=== PATIENT | female | born 1980 | race Native Hawaiian/Other Pacific Islander ===

== ENCOUNTER 2017-08-28 09:21 | Inpatient (IN) ==
[2017-08-28] MEDS ORDERED: [UNRECOGNIZED DRUG - REMARK] OTHER SCH (10:45)
[2017-08-28] MEDS ORDERED: Oxytocin 30 Units/500ml Premix 30 UNITS/500 ML BAG IV.SIG ONE (10:59)
[2017-08-28] MEDS ORDERED: fentaNYL Citrate Inj 100 MCG/2 ML Ampul IV.PUSH PRN ×2 (10:59)
[2017-08-28] MEDS ORDERED: Sod Chloride 0.9% Inj 1,000 ML IV.CONT PRN (10:59)
[2017-08-28] MEDS ORDERED: Oxytocin 30 Units/500ml Premix 30 UNITS/500 ML BAG IV.SIG PRN (10:59)
[2017-08-28] MEDS ORDERED: Sodium Chlor 0.9% Inj 500 ML IV.SIG PRN (10:59)
[2017-08-28] MEDS ORDERED: Naloxone Inj 0.4 MG/ML Vial IV.PUSH PRN ×2 (10:59→19:56)
[2017-08-28] MEDS ORDERED: Citric Acid/Sodium Citrate Liq 30 ML UDC PO SCH (11:00)
--- NOTE | 2017-08-28 11:08 | P.HPOB ---
History of Present Illness Primary Care Physician: Delroy Alexis MD OB [facility] Full H & P dictated - Inpatient Certification If this patient has been admitted as an Inpatient: I certify that the inpatient services were ordered in accordance with Medicare regulations governing the order. This includes certification that hospital inpatient services are reasonable and necessary and in the case of services not specified as inpatient-only under 42 CFR 419.22(n), that they are appropriately provided as inpatient services in accordance to with the 2-midnight benchmark under 43 CFR 412.3(e) Estimated Total Length of Stay (Days): 3 Plans for Post Hospital Care: Home Medications and Allergies Allergies Allergy/AdvReac Type Severity Reaction Status Date / Time No Known Allergies Allergy Uncoded 05/25/13 02:55 Exam Vital signs: Vital Signs 08/28/17 10:39 Pulse Rate 90 Blood Pressure 117/72 Caprini VTE Risk Assessment Caprini VTE Risk Assessment: No/Low Risk (score <= 1) Caprini Risk Assessment Model: Point Value = 1 Point Value = 2 Point Value = 3 Point Value = 5 Age 41-60 Minor surgery BMI > 25 kg/m2 Swollen legs Varicose veins or History of unexplained or recurrent spontaneous Oral contraceptives or hormone replacement Sepsis (< 1 month) Serious lung disease, including pneumonia (< 1 month) Abnormal pulmonary function Acute myocardial infarction Congestive heart failure (< 1 month) History of inflammatory bowel disease Medical patient at bed rest Age 61-74 Arthroscopic surgery Major open surgery (> 45 min) Laparoscopic surgery (> 45 min) Malignancy Confined to bed (> 72 hours) Immobilizing plaster cast Central venous access Age >= 75 History of VTE Family history of VTE Factor V Leiden Prothrombin [id number] Lupus anticoagulant Anticardiolipin antibodies Elevated serum homocysteine Heparin-induced thrombocytopenia Other congenital or acquired thrombophilia Stroke (< 1 month) Elective arthroplasty Hip, pelvis, or leg fracture Acute spinal cord injury (< 1 month) Prophylaxis Regimen: Total Risk Factor Score Risk Level Prophylaxis Regimen 0-1 Low Early ambulation 2 Moderate Order ONE of the following: *Sequential Compression Device (SCD) *Heparin 5000 units SQ BID 3-4 Higher Order ONE of the following medications: *Heparin 5000 units SQ TID *Enoxaparin/Lovenox 40 mg SQ daily (WT < 150 kg, CrCl > 30 mL/min) *Enoxaparin/Lovenox 30 mg SQ daily (WT < 150 kg, CrCl > 10-29 mL/min) *Enoxaparin/Lovenox 30 mg SQ BID (WT < 150 kg, CrCl > 30 mL/min) AND/OR *Sequential Compression Device (SCD) 5 or more Highest Order ONE of the following medications: *Heparin 5000 units SQ TID (Preferred with Epidurals) *Enoxaparin/Lovenox 40 mg SQ daily (WT < 150 kg, CrCl > 30 mL/min) *Enoxaparin/Lovenox 30 mg SQ daily (WT < 150 kg, CrCl > 10-29 mL/min) *Enoxaparin/Lovenox 30 mg SQ BID (WT < 150 kg, CrCl > 30 mL/min) AND *Sequential Compression Device (SCD)
[2017-08-28 11:22] LABS: Baso # (Auto) 0.1 th/mm3 (0.0-0.2); Baso % (Auto) 0.6 % (0.0-2.0); Eos # (Auto) 0.1 th/mm3 (0.0-0.4); Eos % (Auto) 0.7 % (0.0-4.0); Hematocrit 30.6 % (35.0-46.0); Hemoglobin 9.9 gm/dL (11.6-15.3); Lymph # (Auto) 2.4 th/mm3 (1.0-4.8); Lymph % (Auto) 24.6 % (9.0-44.0); Mean Corpuscular HGB Conc 32.2 % (32.0-36.0); Mean Corpuscular Hemoglobin 25.1 pg (27.0-34.0); Mean Corpuscular Volume 78.1 fL (80.0-100.0); Mean Platelet Volume 9.8 fL (7.0-11.0); Mono % (Auto) 10.2 % (0.0-8.0); Neut # (Auto) 6.2 th/mm3 (1.8-7.7); Neut % (Auto) 63.9 % (16.0-70.0); Platelet Count 253 th/mm3 (150-450); Red Blood Count 3.92 mil/mm3 (4.00-5.30); Red Cell Distribution Width 16.1 % (11.6-17.2); White Blood Count 9.7 th/mm3 (4.0-11.0)
[2017-08-28] MEDS ORDERED: Pantoprazole Inj 40 MG Vial IV.PUSH ONE (12:15)
--- NOTE | 2017-08-28 12:52 | P.OBLABOR ---
Subjective Interval history: Resting comfortably with pit just initiated. Has eaten lunch. No leaking or bleeding. GFM Objective Vital Signs: Vital Signs - 8 hr 08/28/17 10:39 08/28/17 11:09 08/28/17 12:31 Temperature 98.4 F Pulse Rate 90 85 Blood Pressure 117/72 117/71 Objective: 3 cm/80%/-2 deviated to her left arom clear fluid EFW 7 pounds pelvis proven Weeks Gestation: 38 Patient Started Active Labor: No Medical Induction of Labor: Yes (for mildly elevated BP and fluid 5 cm) Medical Induction Start Date: 08/28/17 Medical Induction Start Time: 12:51 Artificial Rupture of Membrane: Yes (clear and minimal) Artificial ROM Date: 08/28/17 Artificial ROM Time: 12:51
[2017-08-28 14:37] LABS: Amphetamine Urine With Conf Neg (Neg); Benzodiazepine Urine With Conf Neg (Neg)
[2017-08-28] MEDS ORDERED: fentaNYL 2MCG-Bupiv 0.125% Epi 150 ML EPIDURAL ONE (14:49)
[2017-08-28] MEDS ORDERED: Measles/Mumps/Rubella Vaccine Inj 0.5 ML Vial SQ ONE (16:00)
[2017-08-28] MEDS ORDERED: Diphtheria/Tetanus/Pertussis Vaccine Inj 0.5 ML Syringe IM ONE (16:00)
--- NOTE | 2017-08-28 17:51 | P.OBLABOR ---
Subjective Interval history: Comfortable with epidural no nausea or vomiting or headache Objective Vital Signs: Vital Signs - 8 hr 08/28/17 10:39 08/28/17 10:45 08/28/17 11:09 Temperature 98.4 F Pulse Rate 90 Respiratory Rate 18 Blood Pressure 117/72 08/28/17 12:31 08/28/17 13:01 08/28/17 14:00 Temperature Pulse Rate 85 83 82 Respiratory Rate Blood Pressure 117/71 120/73 104/66 08/28/17 14:30 08/28/17 15:11 08/28/17 15:35 Temperature Pulse Rate 81 92 H 96 H Respiratory Rate Blood Pressure 115/67 120/82 118/75 08/28/17 15:36 08/28/17 15:45 08/28/17 16:00 Temperature 97.7 F Pulse Rate 89 85 Respiratory Rate 18 Blood Pressure 122/70 118/75 08/28/17 16:15 08/28/17 17:01 08/28/17 17:31 Temperature Pulse Rate 75 82 81 Respiratory Rate Blood Pressure 127/81 136/90 128/90 Objective: 5-6/90/-1 mild variables with excellent BTBV category 1 contractions every 2-3 minutes Assessment and Plan - Plan anticipate
[2017-08-28] MEDS ORDERED: Acetaminophen 325 MG Tablet PO ONE (18:00)
[2017-08-28] MEDS ORDERED: Lidocaaine 1.5%/Epinephrine 1:200,000 PF Inj 5 ML Amp ONE (18:25)
[2017-08-28] MEDS ORDERED: Benzocaine 20% Top Spray 60 ML Can TOPICAL PRN (19:56)
[2017-08-28] MEDS ORDERED: Bisacodyl 10 MG Supp RECTAL PRN (19:56)
[2017-08-28] MEDS ORDERED: Acetaminophen 325 MG Tablet PO PRN (19:56)
[2017-08-28] MEDS ORDERED: Witch Hazel 50%/Glyderin 12.5% 40 Pad Jar RECTAL PRN (19:56)
--- NOTE | 2017-08-28 19:56 | P.OBDELI ---
Weeks Gestation: 38 Anesthesia: Epidural Episiotomy: none Vaginal Delivery: Normal Presentation: Occiput posterior Nuchal Cord: None Delayed Cord Clamping (45 sec): Yes Laceration: Perineal, 1 deg Repair: Chromic running Estimated blood loss (mL): 600 Infant: Female, Single Additional Information: LOP over intact perineum. During second stage fluid was port wine suggestive of partial abruptio. No nuchal cord. True knot in the cord. Placenta intact with area of clinical abruptio. EBL 600 but not bleeding now. Apgars 9 at one and 9 at five Cord collection kit completed to specifications.
[2017-08-28] MEDS ORDERED: Oxytocin 30 Units/500ml Premix 30 UNITS/500 ML BAG IV.CONT SCH (20:00)
[2017-08-28] MEDS: Ibuprofen 400 MG Tablet PO PRN (20:40)
[2017-08-28] MEDS ORDERED: Senna/Docusate Sodium 8.6/50 MG Tablet PO SCH (21:00)
[2017-08-28] MEDS ORDERED: Zolpidem Tartrate 5 MG Tablet PO PRN (21:00)
[2017-08-29] MEDS: Ibuprofen 400 MG Tablet PO PRN ×2 (05:48→14:48)
--- NOTE | 2017-08-29 08:01 | P.PNOB ---
Subjective Interval history: Quiet morning Baby in nursery mom plans to breast and bottle feed Objective Vital Signs/I&O: Vital Signs 08/28/17 10:39 08/28/17 10:45 08/28/17 11:09 Temperature 98.4 F Pulse Rate 90 Respiratory Rate 18 Blood Pressure 117/72 08/28/17 12:31 08/28/17 13:01 08/28/17 14:00 Temperature Pulse Rate 85 83 82 Respiratory Rate Blood Pressure 117/71 120/73 104/66 08/28/17 14:30 08/28/17 15:11 08/28/17 15:35 Temperature Pulse Rate 81 92 H 96 H Respiratory Rate Blood Pressure 115/67 120/82 118/75 08/28/17 15:36 08/28/17 15:45 08/28/17 16:00 Temperature 97.7 F Pulse Rate 89 85 Respiratory Rate 18 Blood Pressure 122/70 118/75 08/28/17 16:15 08/28/17 17:01 08/28/17 17:31 Temperature Pulse Rate 75 82 81 Respiratory Rate Blood Pressure 127/81 136/90 128/90 08/28/17 18:01 08/28/17 18:35 08/28/17 19:05 Temperature Pulse Rate 84 85 89 Respiratory Rate Blood Pressure 125/78 127/77 140/85 08/28/17 20:00 08/28/17 20:01 08/28/17 20:08 Temperature 98.2 F Pulse Rate 95 H Respiratory Rate 18 16 Blood Pressure 133/73 08/28/17 20:29 08/28/17 20:37 08/28/17 22:45 Temperature 97.7 F Pulse Rate 85 87 Respiratory Rate 16 16 16 Blood Pressure 119/85 125/87 Intake & Output 08/28/17 08/29/17 08/29/17 18:59 06:59 18:59 Weight 69 kg Other: Weight On Admission 69 kg Result Diagrams: 08/28/17 10:15 Other Results: fundus firm lochia minimal Objective Remarks: GENERAL: Well-nourished, well-developed patient. CARDIOVASCULAR: Regular rate and rhythm without murmurs, gallops, or rubs. RESPIRATORY: Breath sounds equal bilaterally. No accessory muscle use. ABDOMEN/GI: Abdomen soft, non-tender. Fundus: Firm, non-tender at umbilicus. GENITOURINARY: Light to moderate bleeding. EXTREMITIES: No cyanosis or edema, non-tender, without signs of DVT. Medications and IVs: Active Medications Acetaminophen (Tylenol) 650 mg PO Q4H PRN PRN Reason: PAIN SCALE 1 TO 2 Al Hydroxide/Mg Hydroxide (Milk Of Magnesia Liq) 30 ml PO Q12HR PRN PRN Reason: Mild Constipation Benzocaine (Americaine 20% [place]) 1 spray TOPICAL Q4H PRN PRN Reason: For Perineum Discomfort Last Admin: 08/28/17 20:49 Dose: 1 spray Bisacodyl (Dulcolax Supp) 10 mg RECTAL DAILY PRN PRN Reason: SEVERE CONSITIPATION Citric Acid/Sodium Citrate (Sodium Citrate/Citric Acid Liq) 30 ml PO [employer] [facility] Stop: 09/01/17 10:59 Lactated Ringer's (Lr 1000 Ml Inj) 1,000 mls @ 125 mls/hr IV.CONT .Q8H [facility] Last Admin: 08/28/17 12:23 Dose: 125 mls/hr Lactated Ringer's (Lr 1000 Ml Inj) 1,000 mls @ 3,000 mls/hr IV.SIG UNSCH PRN PRN Reason: compromise or epidural Sodium Chloride (Ns Inj) 500 mls @ 1,000 mls/hr IV.SIG UNSCH PRN PRN Reason: SEE LABEL COMMENTS Sodium Chloride (Ns Inj) 1,000 mls @ 100 mls/hr IV.CONT .Q10H PRN PRN Reason: SEE LABEL COMMENTS Oxytocin (Pitocin 30 Units/Ns 500 Ml Premix) 30 units in 500 mls @ 2 mls/hr IV.SIG TITRATE PRN; Protocol PRN Reason: For induction of labor Last Admin: 08/28/17 12:23 Dose: 2 milliunit/min, 2 mls/hr Iron Sucrose (Venofer Inj) 200 mg IV.PUSH ONCE ONE Stop: 08/29/17 09:01 Lactulose (Lactulose Liq) 30 ml PO DAILY PRN PRN Reason: SEVERE CONSITIPATION Lidocaine HCl (Xylocaine 1% Inj) 0.1 ml I-DERMAL PRN PRN PRN Reason: For IV start Stop: 08/31/17 10:58 Lidocaine HCl (Xylocaine 1% Inj) 10 ml INFILTRATN PRN PRN PRN Reason: For episiotomy repair Stop: 08/30/17 10:58 Mineral Oil (Muri-Lube Oil) 10 ml TOPICAL PRN PRN PRN Reason: PRN perineal massage Miscellaneous Information ([facility] Nursing Information) 0 each OTHER Q15M CELESTE Naloxone HCl (Narcan Inj) 0.1 mg IV.PUSH Q2M PRN PRN Reason: for opiate reversal Naloxone HCl (Narcan Inj) 0.1 mg IV.PUSH Q2M PRN PRN Reason: for opiate reversal Ondansetron HCl (Zofran Odt) 4 mg PO Q6H PRN PRN Reason: NAUSEA OR VOMITING Oxycodone/Acetaminophen (Percocet 5/325 Mg) 1 tab PO Q4H PRN PRN Reason: PAIN SCALE 3 TO 5 Oxycodone/Acetaminophen (Percocet 5/325 Mg) 2 tab PO Q4H PRN PRN Reason: PAIN SCALE 6 TO 10 Last Admin: 08/29/17 05:47 Dose: 2 tab Vit/Calcium/Iron/Folic Ac (Stuartnatal Plus 3) 1 tab PO DAILY CELESTE Senna/Docusate Sodium (Love-Colace) 1 tab PO BID CELESTE Sennosides (Senokot) 17.2 mg PO Q12H PRN PRN Reason: Moderate Constipation Sodium Chloride (Ns Flush) 2 ml IV.FLUSH BID CELESTE Sodium Chloride (Ns Flush) 2 ml IV.FLUSH PRN PRN PRN Reason: FLUSH AFTER USING IV ACCESS [place]/Glycerin (Tucks Pads) 1 applicatio RECTAL QID PRN PRN Reason: HEMORRHOIDS Last Admin: 08/28/17 20:50 Dose: 1 applicatio Zolpidem Tartrate (Ambien) 5 mg PO HS PRN PRN Reason: SLEEP Assessment and Plan - Diagnosis (1) Normal course Code(s): Z39.2 - Encounter for routine follow-up Status: Acute (2) Chronic anemia Code(s): D64.9 - Anemia, unspecified Status: Acute - Plan Unremarkable PPD 1 Reviewed her concerns about her elevated heart rate when pushing reassured her that I am not concerned with these physiologic responses to second stage understands that she has only a first degree tear--basically the skin scraped at the fourchette and the sutures are to prevent stinging with voiding anticipate rapid healing giving venofir to avoid oral iron. anticipate discharge today or tomorrow.
[2017-08-29] MEDS ORDERED: Iron Sucrose Inj 100 MG/5 ML Vial IV.PUSH ONE (09:00)
[2017-08-29] MEDS ORDERED: Prenatal Vit/Ca/Iron/Folic Acid Tablet PO SCH (09:00)
== END 2017-08-29 20:53 | disposition home or self-care (01) ==
LOC: H2E 09:21 → H1EA 22:45
PROVIDERS: ADMIT Obstetrics & Gynecology; ATTEND Obstetrics & Gynecology